=== PATIENT | male | born 1990 | race African-American/Black ===

== ENCOUNTER 2018-10-01 21:10 | Emergency (ER) | payer SELFPAY ==
--- NOTE | 2018-10-01 21:47 | EDM.PDOC ---
ED HPI GENERAL MEDICAL PROBLEM - General Chief Complaint: Respiratory Problem Stated Complaint: HARD TO BREATH, FEET NUMB Time Seen by Provider: 10/01/18 21:27 - History of Present Illness INITIAL COMMENTS - FREE TEXT/NARRATIVE: HISTORY AND PHYSICAL: History of present illness: Patient is a 28-year-old black male with no significant past medical history presents with a concern of medical screening exam he had spoken to his mother regarding his feet being cold intermittently which resulted in her suggesting screening for diabetes which does run in his family he's also had some myalgia nonspecific complaints recently denies fever chills nausea vomiting or other concern Review of systems: As per history of present illness and below otherwise all systems reviewed and negative. Past medical history: As per history of present illness and as reviewed below otherwise noncontributory. Surgical history: As per history of present illness and as reviewed below otherwise noncontributory. Social history: No reported history of drug or alcohol abuse. Family history: As per history of present illness and as reviewed below otherwise noncontributory. Physical exam: HEENT: Atraumatic, normocephalic, pupils reactive, negative for conjunctival pallor or scleral icterus, mucous membranes moist, throat clear, neck supple, nontender, trachea midline. Lungs: Clear to auscultation, breath sounds equal bilaterally, chest nontender. Heart: S1S2, regular, negative for clicks, rubs, or JVD. Abdomen: Soft, nondistended, nontender. Negative for masses or hepatosplenomegaly. Negative for costovertebral tenderness. Pelvis: Stable nontender. Genitourinary: Deferred. Rectal: Deferred. Extremities: Atraumatic, negative for cords or calf pain. Neurovascular unremarkable. Neuro: Awake, alert, oriented. Cranial nerves II through XII unremarkable. Cerebellum unremarkable. Motor and sensory unremarkable throughout. Exam nonfocal. Diagnostics: Bedside glucose chest x-ray influenza screen Therapeutics: None Impression: #1 medical screening exam Definitive disposition and diagnosis as appropriate pending reevaluation and review of above. - Related Data Allergies Allergy/AdvReac Type Severity Reaction Status Date / Time No Known Allergies Allergy Verified 10/01/18 21:50 Home Meds: Home Meds . [No Known Home Meds] 10/01/18 [History] ED ROS GENERAL - Review of Systems Review Of Systems: ROS reveals no pertinent complaints other than HPI. ED EXAM, GENERAL - Physical Exam Exam: See Below (See dictation) Course - Vital Signs Last Recorded V/S: Last Vital Signs Temp 36.5 C 10/01/18 21:35 Pulse 75 10/01/18 21:35 Resp 18 10/01/18 21:35 BP 118/75 10/01/18 21:35 Pulse Ox 95 10/01/18 21:35 - Orders/Labs/Meds Orders: Active Orders 24 hr Category Date Time Status Blood Glucose Check, Bedside [RC] ONETIME Care 10/01/18 21:45 Active COMPREHENSIVE METABOLIC PN,CMP [CHEM] Stat Lab 10/01/18 22:04 Received Labs: Laboratory Tests 10/01/18 Range/Units 22:04 Hemoglobin A1c 5.6 (4.5-6.2) % Departure - Departure Time of Disposition: 22:38 Disposition: Home, Self-Care 01 Condition: Good Clinical Impression: Encounter for medical screening examination - Discharge Information Referrals: PCP,Not In Area [Primary Care Provider] - Forms: ED Department Discharge Additional Instructions: The following information is given to patients seen in the emergency department who are being discharged to home. This information is to outline your options for follow-up care. We provide all patients seen in our emergency department with a follow-up referral. The need for follow-up, as well as the timing and circumstances, are variable depending upon the specifics of your emergency department visit. If you don't have a primary care physician on staff, we will provide you with a referral. We always advise you to contact your personal physician following an emergency department visit to inform them of the circumstance of the visit and for follow-up with them and/or the need for any referrals to a consulting specialist. The emergency department will also refer you to a specialist when appropriate. This referral assures that you have the opportunity for followup care with a specialist. All of these measure are taken in an effort to provide you with optimal care, which includes your followup. Under all circumstances we always encourage you to contact your private physician who remains a resource for coordinating your care. When calling for followup care, please make the office aware that this follow-up is from your recent emergency room visit. If for any reason you are refused follow-up, please contact the [facility] emergency department at and asked to speak to the emergency department charge nurse. [facility] [address] [place] [id number] Motrin/Tylenol as directed soft smoking follow-up primary care clinic above: Schedule routine appointment and return as needed as discussed - My Orders Last 24 Hours: My Active Orders 10/01/18 21:45 Blood Glucose Check, Bedside [RC] ONETIME 10/01/18 22:04 COMPREHENSIVE METABOLIC PN,CMP [CHEM] Stat - Assessment/Plan Last 24 Hours: My Active Orders 10/01/18 21:45 Blood Glucose Check, Bedside [RC] ONETIME 10/01/18 22:04 COMPREHENSIVE METABOLIC PN,CMP [CHEM] Stat
[2018-10-01 22:30] LABS: HEMOGLOBIN A1C 5.6 % (4.5-6.2)
--- NOTE | 2018-10-01 22:35 | CR ---
INDICATION: Shortness of breath TECHNIQUE: Chest 1 view. COMPARISON: None FINDINGS: Cardiovascular and mediastinum: Heart size and vasculature are normal in caliber and appearance. Mediastinum is within normal limits. Lungs and pleural space: Lungs are clear. No sign of infiltrate or mass. No sign of pleural effusion. No pneumothorax. Bones and soft tissues: Left clavicular plate and screws. IMPRESSION: Unremarkable chest. Dictated by Issac Benitez MD @ 10/01/2018 10:33:29 PM Dictated by: Issac Benitez MD @ 10/01/2018 22:33:37 (Electronically Signed)
[2018-10-01 22:46] LABS: CHLORIDE,CL 103 mmol/L (98-107); SODIUM,NA 139 mmol/L (136-148)
== END 2018-10-01 22:54 | disposition home or self-care (01) ==
LOC: MW.ED 21:10
DX: Z13.1 Encounter for screening for diabetes mellitus (principal)
CPT/HCPCS: 36415; 71045; 71045-26; 80053; 83036; 87804; 99283